=== PATIENT | female | born 1990 | race Asian ===

== ENCOUNTER 2023-11-16 21:26 | Emergency (ER) | payer OTHER ==
[~2023-11-16] VITALS: Ht 160 cm; Wt 81.6 kg
[2023-11-16 21:30] VITALS: BP_SYST 136; PULSE 72; RESP 12; TEMP 98.6; O2SAT 99
[2023-11-16] MEDS ORDERED: AUG875 PO (23:23)
[2023-11-16] MEDS: LIDOCAINE/EPI 1% 1:100000 20 ML VIAL INFIL ONE (23:28)
[2023-11-16] MEDS: BACITRACIN 1 GM OINT TP ONE (23:28)
[2023-11-16] MEDS: DIPHTH,PERTUSS(ACELL),TET VAC 0.5 ML VIAL (Tdap) I.M. ONE (23:28)
[2023-11-16 23:34] VITALS: BP_SYST 136; PULSE 72; RESP 12; TEMP 98.6; O2SAT 99
== END 2023-11-16 23:34 | disposition home or self-care (01) ==
LOC: SED 21:26
DX: S01.81XA Laceration without foreign body of other part of head, initial encounter (principal); W55.01XA Bitten by cat, initial encounter; Y93.89 Activity, other specified; Y92.89 Other specified places as the place of occurrence of the external cause; Y99.8 Other external cause status
CPT/HCPCS: 81025; 90715; 99283

== ENCOUNTER 2023-11-23 21:50 | Emergency (ER) | payer OTHER ==
[~2023-11-23] VITALS: Ht 160 cm; Wt 81.6 kg
[~2023-11-23 21:50] MED LIST: AUG875 PO
[2023-11-23 22:14] VITALS: BP_SYST 135; PULSE 76; RESP 17; TEMP 98.2; O2SAT 100
[2023-11-23 22:39] VITALS: BP_SYST 135; PULSE 76; RESP 17; TEMP 98.2; O2SAT 100
== END 2023-11-23 22:38 | disposition home or self-care (01) ==
LOC: SED 21:50
DX: S01.81XD Laceration without foreign body of other part of head, subsequent encounter (principal); Z48.02 Encounter for removal of sutures; Z79.2 Long term (current) use of antibiotics; W55.01XD Bitten by cat, subsequent encounter
CPT/HCPCS: 99281